=== PATIENT | male | born 1975 | race Caucasian/White ===

== ENCOUNTER → 2017-05-22 08:11 | Outpatient (CLI) | payer OTHER | END | disposition home or self-care (01) | LOC: D.RAD 08:00 | DX: K21.9 Gastro-esophageal reflux disease without esophagitis (principal); R10.13 Epigastric pain; R10.9 Unspecified abdominal pain ==

== ENCOUNTER → 2017-06-20 08:15 | Outpatient (CLI) | payer OTHER | END | disposition home or self-care (01) | LOC: D.OPS 08:15 | DX: K21.9 Gastro-esophageal reflux disease without esophagitis (principal); R10.13 Epigastric pain ==